=== PATIENT | female | born 1995 | race Caucasian/White ===

== ENCOUNTER 2017-09-03 06:06 | Inpatient (IN) | payer OTHER, SELFPAY ==
[2017-09-03] MEDS ORDERED: Ampicillin 2 GM in Sodium Chloride 0.9% 100 ML IV ONE (07:41)
[2017-09-03] MEDS ORDERED: Sodium Chloride 0.9% 10 ML Syringe FLUSH PRN (07:41)
[2017-09-03] MEDS ORDERED: Nalbuphine 20 MG/1 ML Amp IVPUSH PRN (07:41)
[2017-09-03] MEDS ORDERED: Ondansetron 4 MG/2 ML SDV IVPUSH PRN (07:41)
[2017-09-03] MEDS ORDERED: Lactated Ringers 1,000 ML IV SCH (07:45)
[2017-09-03] MEDS ORDERED: Oxytocin/Lactated Ringers 10 UNIT/1,000 ML BAG IV ONE (08:47)
--- NOTE | 2017-09-03 09:40 | PCM.LDHP ---
L&D History of Present Illness - General Date of Service: 09/03/17 Admit Problem/Dx: Patient Status Order with Admit Dx/Problem 09/03/17 07:42 Patient Status [ADT] Routine Admission Diagnosis/Problem Admission Diagnosis/Problem Normal 09/03/17 09:28 37-4/7 week intrauterine , active labor, advanced cervical dilation Source of Information: Patient, Old Records History Limitations: Reports: No Limitations - History of Present Illness Introduction:: Admission diagnosis: 38-4/7 week intrauterine things, active labor, advanced cervical dilation repair of history present this patient is a 22-year-old 3 para 2002 white female who is admitted into labor and delivery with contractions occurring every 3-5 minutes initially increased every 3 minutes. Her ROSLYN is 09/13/2017 placing her at 38-4/7 weeks. Her cervix is dilated to 6 cm , 95% effaced, -2 station, anterior and very soft with bulging bag cantor at time of admission. Artificial rupture murmurs undertaken resulting in clear amniotic fluid. heart tones are reassuring. VP RESPIRATORY history 3 para 2001. Her ROSLYN of 09/13/2017 is determined by a certain last menstrual period which occurred starting 12/07/2016 and lasted for 5 days. Patient had menarche at age 11, cycles every 28 days, cycles are regular and she is not using any control time conception. Previous obstetric history includes: 1. Male born 04/29/2015 at 39 weeks gestational age [facility] so was [facility]. Child's name is Lucius 2. Male born 08/11/2016 at 40 weeks gestational age after 9 hours of labor -7 lbs. 15 oz. vaginal delivery-child's name is Roel course was relatively unremarkable. Patient had a less than regular number of visits prenatally. She declined gestational diabetic testing and CBC at second trimester. She declined genetic testing and declined the T dap. The PDS score on 04/23/2017 was 0 out of 30. She is a group B strep carrier as demonstrated by her urine culture at her first visit. Her course showed a normal increase in fundal height. Her weight gain was from 145.4 pounds to 183 pounds for a 29 pound increase. laboratory testing showed blood to be a positive with a negative MRI screen. Hemoglobin first visit was 14.2 g/dL. Platelets are 280,000. Her rubella titer shows immunity. Patient declined GC and chlamydia. Her group B strep screen was not done as her urine culture showed group B strep first visit. She declined second trimester testing Allergies: none Medications: vitamins Past medical history: 1. Normal suntans vaginal delivery 2 Past surgical history: unremarkable Family history: The patient has 2 children boys ages 4 and 2-alive and well. 4 siblings 2 brothers 2 sisters, alive and well. Mother is alive and well as his father. Paternal grandmother is alive and well. Maternal grandfather last fall due to CHF at age 80. Both maternal grandmother and grandfather are alive and well. No anesthesia, bleeding, blood clotting problems noted with the family. Social history patient is , lives in [facility], is a [id number] mom. 's name is Damon Cooper. She denies any significant muscle alcohol, drugs or tobacco. Review of systems: Patient is reporting good activity. Skin: Negative cardiovascular: No chest pain or exercise intolerance Respiratory: No infectious symptoms or shortness of breath Breasts: Changes associated with only GI: Negative : Changes associated with Muscoskeletal: Negative Neurological: Negative Physical exam: Gen. patient is well-developed, well-nourished, pleasant status distress. At last visit on 08/28/2017 her blood pressure 110/78, weight is 183.4 pounds, heart rate was 144. Her prepregnancy weight was 145.4 pounds and her height is 5 feet 0 inches. Prepregnancy BMI was 28.3. In general patient well developed, well-nourished, pleasant and was stated age distress. Skin is warm dry without lesions. HEENT, neck and back within normal and still prepped lungs are clear with good breath sounds in all lung oneal. Cardiovascular exam shows regular rate and rhythm without murmurs. Breast exam is deferred abdomen done at first visit and found to be normal. Vitamin is protuberant with fundal height of 38+ years on last evaluation clinic. Cervical exam as described above Extremities and neurological exam are grossly within normal limits. - Related Data Allergies/Adverse Reactions: Allergies Allergy/AdvReac Type Severity Reaction Status Date / Time No Known Allergies Allergy Verified 04/28/14 22:54 Home Medications: Home Meds Acetaminophen [Tylenol] 650 mg PO Q4H PRN #50 tablet 04/30/14 [Rx] Ascorbate Calcium [Vitamin C] 1 tab 04/30/14 [History] Benzocaine/Menthol [Dermoplast Pain Relief [place]] 1 spray TOP ASDIRECTED PRN #1 canister 04/30/14 [Rx] Docusate Sodium [Colace] 100 mg PO BID PRN #50 cap 04/30/14 [Rx] Echinacea Purpurea Root [Echinacea] 1 tab PO 04/30/14 [History] Ibuprofen [Motrin] 200 - 800 mg PO Q6H PRN #50 tablet 04/30/14 [Rx] Lanolin [Lansinoh HPA] 1 applic TOP ASDIRECTED PRN #1 crm 04/30/14 [Rx] Vit 90/Iron Fum/Folic [ Formula] 04/30/14 [History] Past Medical History - Past Health History Medical/Surgical History: Denies Medical/Surgical History VP RESPIRATORY History: Reports: Social & Family History - Tobacco Use Smoking Status *Q: Never Smoker - Alcohol Use Days Per Week of Alcohol Use: 0 - Recreational Drug Use Recreational Drug Use: No H&P Review of Systems - Review of Systems: Review Of Systems: See Below L&D Exam - Exam Exam: See Below Problem List Initiated/Reviewed/Updated: Yes Orders Last 24hrs: Active Orders 24 hr Category Date Time Status Patient Status [ADT] Routine ADT 09/03/17 07:42 Active Activity as Tolerated [RC] PFP Care 09/03/17 07:42 Active Communication Order [RC] ASDIRECTED Care 09/03/17 07:42 Active Heart Tones [RC] ASDIRECTED Care 09/03/17 07:43 Active Notify Provider [RC] PFP Care 09/03/17 07:42 Active Notify Provider [RC] PRN Care 09/03/17 07:42 Active Peripheral IV Care [RC] . DIRECTED Care 09/03/17 07:43 Active Vital Signs [RC] PER UNIT ROUTINE Care 09/03/17 07:42 Active Regular Diet [DIET] Diet 09/03/17 Breakfast Active Ampicillin 1 gm Med 09/03/17 12:00 Active Sodium Chloride 0.9% [Normal Saline] 100 ml IV Q4H Lactated Ringers [Ringers, Lactated] 1,000 ml Med 09/03/17 07:45 Active IV ASDIRECTED Lidocaine 1% [Xylocaine 1%] Med 09/03/17 12:00 Once 10 ml INJECT ONETIME ONE Nalbuphine [Nubain] Med 09/03/17 07:41 Active 10 mg IVPUSH Q2H PRN Ondansetron [Zofran] Med 09/03/17 07:41 Active 4 mg IVPUSH Q4H PRN Sodium Chloride 0.9% [Saline Flush] Med 09/03/17 07:41 Active 10 ml FLUSH ASDIRECTED PRN Electronic Heart Tones Ext w TOCO [WOMSER] Oth 09/03/17 07:42 Ordered Routine Electronic Heart Tones Internal [WOMSER] Per Unit Oth 09/03/17 07:42 Ordered Routine Peripheral IV Insertion Adult [OM.PC] Routine Oth 09/03/17 07:42 Ordered Resuscitation Status Routine Resus Stat 09/03/17 07:41 Ordered Medication Orders Ampicillin Sodium 1 gm/ Sodium (Chloride) 100 mls @ 200 mls/hr IV Q4H ALEXA Lactated Ringer's (Ringers, Lactated) 1,000 mls @ 100 mls/hr IV ASDIRECTED ALEXA Last Admin: 09/03/17 08:00 Dose: 100 mls/hr Lidocaine HCl (Xylocaine 1%) 10 ml INJECT ONETIME ONE Stop: 09/03/17 12:01 Nalbuphine HCl (Nubain) 10 mg IVPUSH Q2H PRN PRN Reason: Pain (moderate 4-6) Ondansetron HCl (Zofran) 4 mg IVPUSH Q4H PRN PRN Reason: Nausea/Vomiting Sodium Chloride (Saline Flush) 10 ml FLUSH ASDIRECTED PRN PRN Reason: Keep Vein Open Assessment/Plan Comment:: Assessment: 1. 38-4/7 week intrauterine , active labor, advanced cervical dilation 2. Group B strep status positive per urine culture done at the beginning of needs prophylactic antibiotics 3. Patient plans to breast-feed 4. Patient is rubella immune 5. Patient wishes to do a natural labor. Plan: 1. Anticipate normal spontaneous vaginal [place] 2. Regular diet 3. Support nursing decision
--- NOTE | 2017-09-03 11:24 | PCM.SN ---
- Free Text/Narrative Note: Delivery note Maritza is a 22-year-old 3 now para 3003 white female who was admitted on the a.m. of 09/03/2017 in active labor. Patient is 38-4/7 weeks gestational age. Upon admission she was dilated to 4-5 cm. heart tones reassuring and patient was abiodun every 3-4 minutes. Artificial rupture membranes resulted in clear amniotic fluid. It should be noted that she received her first dose of antibiotics consisting of ampicillin 2 g prior to delivery. She very quickly went to complete cervical dilation and at 1006 hrs. on 09/03/2017 patient delivered a viable, delatorre, with Apgars of 9 and 10, a weight of 3720 g (8 pounds 3.2 ounces), a length of 20.5 inches in an occiput anterior position over an intact perineum. The cord was clamped 2 and was then cut by the father of the baby. He was placed on mom's abdomen, dried and stimulated. Cord blood was obtained. Placenta was then delivered in a Fay presentation over an intact perineum. The umbilical cord had 3 vessels. Placenta appeared intact and complete and was discarded per patient desire. Pitocin was administered IV after delivery of the baby resulting increase in uterine tone and reduce risk of bleeding. Blood loss was 100 mL. Patient plans to breast-feed. Condition: Good
[2017-09-03] MEDS ORDERED: Ampicillin 1 GM in Sodium Chloride 0.9% 100 ML IV SCH (12:00)
[2017-09-03] MEDS ORDERED: Lidocaine 1% 50 ML MDV INJECT ONE (12:00)
[2017-09-03] MEDS: Ibuprofen 600 MG Tab PO PRN (12:50)
[2017-09-03] MEDS ORDERED: Acetaminophen 325 MG Tab PO PRN (13:35)
[2017-09-03] MEDS ORDERED: Benzocaine/Menthol 20%-0.5% Spray 56 GM Canister TOP PRN (13:35)
[2017-09-03] MEDS ORDERED: Docusate Sodium 100 MG Cap PO PRN (13:35)
[2017-09-03] MEDS ORDERED: Lanolin 100% Cream 7 GM Tube TOP PRN (13:35)
[2017-09-03] MEDS ORDERED: Witch Hazel Medicated Pads 100/Jar TOP PRN (13:35)
[2017-09-04] MEDS: Prenatal Multivitamin with Calcium/Folic Acid/Iron Tab PO SCH (09:40)
[2017-09-04] MEDS: Ibuprofen 600 MG Tab PO PRN ×2 (09:40→19:52)
[2017-09-05 04:58] VITALS: BP 103/54
--- NOTE | 2017-09-05 07:01 | PCM.DCSUM1 ---
Discharge Summary - Hospital Course Free Text/Narrative:: Maritza is a 22-year-old 3 now para 3003 white female who was admitted on the a.m. of 09/03/2017 in active labor. Patient is 38-4/7 weeks gestational age. Upon admission she was dilated to 4-5 cm. heart tones reassuring and patient was abiodun every 3-4 minutes. Artificial rupture membranes resulted in clear amniotic fluid. It should be noted that she received her first dose of antibiotics consisting of ampicillin 2 g prior to delivery. She very quickly went to complete cervical dilation and at 1006 hrs. on 09/03/2017 patient delivered a viable, delatorre, with Apgars of 9 and 10, a weight of 3720 g (8 pounds 3.2 ounces), a length of 20.5 inches in an occiput anterior position over an intact perineum. The cord was clamped 2 and was then cut by the father of the baby. He was placed on mom's abdomen, dried and stimulated. Cord blood was obtained. Placenta was then delivered in a Fay presentation over an intact perineum. The umbilical cord had 3 vessels. Placenta appeared intact and complete and was discarded per patient desire. Pitocin was administered IV after delivery of the baby resulting increase in uterine tone and reduce risk of bleeding. Blood loss was 100 mL. Patient plans to breast-feed. patient. She is nursing without problems, ambulating well and has minimal lochia. Vital signs stable. Post CBC is within normal limits for the period. - Discharge Data Discharge Date: 09/05/17 Discharge Disposition: Home, Self-Care 01 Condition: Good - Patient Instructions Diet: Regular Diet as Tolerated (Nursing diet was increased calories and calcium as directed) Activity: As Tolerated (No intercourse or tampons until bleeding resolves.) Driving: May Drive Today Showering/Bathing: May Shower (May take a bath) Notify Provider of: Fever, Increased Pain, Swelling and Redness, Nausea and/or Vomiting - Discharge Plan Home Medications: Home Meds Acetaminophen [Tylenol] 650 mg PO Q4H PRN #50 tablet 04/30/14 [Rx] Ascorbate Calcium [Vitamin C] 1 tab 04/30/14 [History] Benzocaine/Menthol [Dermoplast Pain Relief [place]] 1 spray TOP ASDIRECTED PRN #1 canister 04/30/14 [Rx] Docusate Sodium [Colace] 100 mg PO BID PRN #50 cap 04/30/14 [Rx] Echinacea Purpurea Root [Echinacea] 1 tab PO 04/30/14 [History] Ibuprofen [Motrin] 200 - 800 mg PO Q6H PRN #50 tablet 04/30/14 [Rx] Lanolin [Lansinoh HPA] 1 applic TOP ASDIRECTED PRN #1 crm 04/30/14 [Rx] Vit 90/Iron Fum/Folic [ Formula] 04/30/14 [History] Acetaminophen [Tylenol] 650 mg PO Q4H PRN tablet 09/05/17 [Rx] Referrals: Eddie Steen MD [Primary Care Provider] - (Return to clinicDr. Steen2 weeks.) - Discharge Summary/Plan Comment DC Time >30 min.: No Discharge Summary/Plan Comment: Discharge instructions: 1. Discharge home 2. Diet, activity and follow-up discussed with patient. Recommend nursing diet with increased calories and calcium. 3. Precautions given concern increased pain, bleeding, temperature, signs/ symptoms of DVT/PE. 4. Medications per home medication was printed, discussed with and given to the patient. 5. Return to clinic-Dr. [facility]en[facility] in 2 weeks. Diagnosis: Term -delivered Condition: Good - Patient Data Vitals - Most Recent: Last Vital Signs Temp 36.6 C 09/05/17 03:19 Pulse 69 09/05/17 03:19 Resp 16 09/04/17 19:55 BP 103/54 L 09/05/17 03:19 Pulse Ox 100 09/05/17 03:19 Weight - Most Recent: 83.007 kg I&O - Last 24 hours: Intake & Output 09/04/17 09/04/17 09/05/17 14:59 22:59 06:59 Intake Total 120 Balance 120 Lab Results - Last 24 hrs: Laboratory Results - last 24 hr 09/04/17 Range/Units 11:40 WBC 10.65 H (3.98-10.04) K/mm3 RBC 4.36 (3.98-5.22) M/mm3 Hgb 11.6 (11.2-15.7) gm/L Hct 36.1 (34.1-44.9) % MCV 82.8 (79.4-94.8) fl MCH 26.6 (25.6-32.2) pg MCHC 32.1 L (32.2-35.5) g/dl RDW Std Deviation 46.3 (36.4-46.3) fL Plt Count 198 (182-369) K/mm3 MPV 11.6 (9.4-12.3) fl Med Orders - Current: Current Medications Acetaminophen (Tylenol) 650 mg PO Q4H PRN PRN Reason: mild pain or fever Benzocaine/Menthol (Dermoplast Pain Relief [place]) 0 gm TOP ASDIRECTED PRN PRN Reason: Perineal Comfort Measure Docusate Sodium (Colace) 100 mg PO BID PRN PRN Reason: Constipation Emollient Ointment (Lansinoh Hpa) 0 gm TOP ASDIRECTED PRN PRN Reason: Sore Nipples Oxytocin 10 unit/ Lactated (Ringer's) 1,001 mls @ 500 mls/hr IV ASDIRECTED [facility] Ibuprofen (Motrin) 600 mg PO Q4H PRN PRN Reason: Mild pain or fever Last Admin: 09/04/17 19:52 Dose: 600 mg Prenat Multivit/[place]/Iron/Folic Ac ( Plus Iron) 1 each PO DAILY [facility] Last Admin: 09/04/17 09:40 Dose: Not Given Enid Gallagher ([place]) 1 pad TOP ASDIRECTED PRN PRN Reason: Hemorrhoid pain Discontinued Medications Ampicillin Sodium 2 gm/ Sodium (Chloride) 100 mls @ 200 mls/hr IV ONETIME ONE Stop: 09/03/17 08:10 Last Admin: 09/03/17 07:50 Dose: 200 mls/hr Ampicillin Sodium 1 gm/ Sodium (Chloride) 100 mls @ 200 mls/hr IV Q4H [facility] Lactated Ringer's (Ringers, Lactated) 1,000 mls @ 100 mls/hr IV ASDIRECTED [facility] Last Admin: 09/03/17 08:00 Dose: 100 mls/hr Oxytocin/Lactated Ringer's (Pitocin In Lr 10 Units/1,000 Ml) Confirm Administered Dose 10 unit in 1,000 mls @ as directed IV .STK-MED ONE Stop: 09/03/17 08:48 Last Admin: 09/03/17 10:10 Dose: 10 unit Lidocaine HCl (Xylocaine 1%) 10 ml INJECT ONETIME ONE Stop: 09/03/17 12:01 Nalbuphine HCl (Nubain) 10 mg IVPUSH Q2H PRN PRN Reason: Pain (moderate 4-6) Ondansetron HCl (Zofran) 4 mg IVPUSH Q4H PRN PRN Reason: Nausea/Vomiting Sodium Chloride (Saline Flush) 10 ml FLUSH ASDIRECTED PRN PRN Reason: Keep Vein Open *Q Meaningful Use (DIS) - VTE *Q VTE Criteria *Q: - Stroke *Q Stroke Criteria *Q: - AMI *Q AMI Criteria *Q:
[2017-09-05] MEDS: Prenatal Multivitamin with Calcium/Folic Acid/Iron Tab PO SCH (08:30)
[2017-09-05] MEDS: Ibuprofen 600 MG Tab PO PRN (08:31)
== END 2017-09-05 10:35 | disposition home or self-care (01) | DRG 775 ==
LOC: JD.OB 06:06 → JD.OBCHECK 06:06 → JD.OB 07:42 → JD.OBCHECK 07:42 → JD.OB 10:06 → OBSVTOIN 10:06
PROVIDERS: ADMIT Obstetrics & Gynecology; ATTEND Obstetrics & Gynecology
PROC: 10E0XZZ Delivery of Products of Conception, External Approach (ICD-10-PCS; principal; 2017-09-03)
PROC: 10907ZC Drainage of Amniotic Fluid, Therapeutic from Products of Conception, Via Natural or Artificial Opening (ICD-10-PCS; 2017-09-03)
DX: O99.824 Streptococcus B carrier state complicating childbirth (principal); Z3A.38 38 weeks gestation of pregnancy; Z37.0 Single live birth
CPT/HCPCS: 36415; 59409; 85027; A9270-GY; J0290; J2590; J7030; J7120

== ENCOUNTER 2019-06-15 04:42 | Inpatient (IN) | payer SELFPAY ==
[2019-06-15] MEDS ORDERED: Nalbuphine 10 MG/ML Syringe IVPUSH PRN (05:03)
[2019-06-15] MEDS ORDERED: Sodium Chloride 0.9% 10 ML Syringe FLUSH PRN (05:03)
[2019-06-15] MEDS ORDERED: Lactated Ringers 1,000 ML IV SCH (05:15)
[2019-06-15] MEDS ORDERED: Oxytocin/Lactated Ringers 10 UNIT/1,000 ML BAG IV SCH (05:15)
--- NOTE | 2019-06-15 05:18 | PCM.LDHP ---
L&D History of Present Illness - General Date of Service: 06/15/19 Admit Problem/Dx: Admission Diagnosis/Problem Admission Diagnosis/Problem 06/15/19 05:04 Maritza is a 23-year-old 4 para 3003 white female at 39-2/7 weeks gestational age with a final ROSLYN of 06/20/2019 is admitted to labor and delivery in active labor with advanced cervical dilation of 8 cm, 90% effaced, -1 station , anterior cervix, very soft consistency, bag cantor intact in vertex presentation. Source of Information: Patient History Limitations: Reports: No Limitations - History of Present Illness Introduction:: Maritza is a 23-year-old 4 para 3003 white female at 39-2/7 weeks gestational age with a final ROSLYN of 06/20/2019 is admitted to labor and delivery on the supervisor paper coating of 06/15/2019 in active labor with advanced cervical dilation of 8 cm, 90% effaced, -1 station, anterior cervix, very soft consistency, bag cantor intact in vertex presentation. She reports good activity.She had been scheduled for induction on 06/15/2019. heart tones are reassuring. B strep screen is negative. HOT BALLER history: Maritza is a 23-year-old 4 para 3003. Final ROSLYN 06/20/2019 as determined by a certain last menstrual start at 09/13/2018. Patient was not using any control at the time of conception. She had menarche at age 11. Cycles every 28-30 days and regular. Her previous obstetric history includes the followin. Male born 04/29/2015 at 39 weeks gestational age after 46 hours of labor. 8 lbs. 2 oz. born via normal sinus vaginal delivery at [facility]. In a home but failed to progress was admitted to [facility] for delivery. Child's name is Lucius. 2. Male born 08/11/2017 at 40 weeks gestational age after 9 hours of labor. Baby weighed 7 lbs. 15 oz. and was born via normal spontaneous vaginal delivery. She delivered at [facility]. Child's name is Roel. 3. Male infant born 09/03/2017 after 9 hours of labor. Weight was 8 lbs. 3 oz. Baby delivered via spontaneous vaginal delivery. She delivered at [facility] in [place]. Child's name is John. course: Patient was seen early in the at approximately 4 weeks and 5 days. She was seen on a regular basis. Her weight gain was from 170.4 pounds to 195.4 pounds for a 15 pound weight gain. Her vital signs remained stable throughout the course and her fundal height growth was appropriate. She declined genetic testing. She declined STI testing. She declined T dap and flu vaccination. Her [place] depression screening score was 0/30 on 02/05/2019. She plans to breast-feed. She refused her 1 hour glucose tolerance test. labs: Blood is A+ with a negative MRI screening. First hemoglobin was 13.6 g/dL and platelets are 281,000. She is rubella immune. Urine culture was negative. She declined hepatitis and HIV tests. Chlamydia and gonorrhea assays were also declined. Her group B strep screen was negative. Second trimester testing was declined. These: None Medications: 1. B complex oral tablets 1 daily 2. tablets one daily Past medical history: 1. Normal spontaneous vaginal delivery 2 Past surgical history: Unremarkable Family history: Patient has 2 children 2 boys ages 3 and 1. They are alive and well. 4 siblings including 2 brothers and 2 sisters are alive and well. Mother is alive and well as is her father. Maternal grandmother is alive and well. Maternal grandfather approximately 9 months ago due to CHF at age 80. Paternal grandmother and paternal grandfather both alive and well. There is no known family history of cancer, bleeding or clotting disorders, anesthesia- related issues or -related issues. Social history: Patient is . She lives in [place], [place]. She is a homemaker. She is a high school graduate. 's name is Damon Cooper. She does not use any alcohol, drugs or tobacco. Review of systems: In general patient has no complaints other than contractions.. Skin: Negative Lungs: No infectious symptoms or shortness of breath Cardiovascular: No chest pain or exercise intolerance Breasts: changes noted. GI: Negative : Body habitus changes associated with . Musculoskeletal: Negative Neurological: Negative In general the patient is well-developed, well-nourished, pleasant female of stated age in no acute distress. She is having contractions but seems to tolerate them very well. On last evaluation in clinic her blood pressure was 112/68. Weight was 195.4 with a pregravid weight 170.4. Height is 5 feet 3 inches. The heart rate at that time was 145 bpm. body mass index is 30.1. Skin is warm dry without lesions. HEENT, neck and back within normal limits. Lungs are clear with good breath sounds in all lung oneal. Cardiovascular exam shows regular and rhythm without murmurs. Breast exam is deferred at this time having been done at her first female was found to be normal and is not repeated at this time. Breast. Abdomen is Gravid with fundal height of 38.5 cms on last evaluation. Genital per digital evaluation shows cervix to be 8 cm dilated, 95% effaced, -1 station, bulging bag cantor, anterior position, very soft, vertex presentation.. Extremities and neurological exam are grossly within normal limits. - Related Data Allergies/Adverse Reactions: Allergies Allergy/AdvReac Type Severity Reaction Status Date / Time No Known Allergies Allergy Verified 04/28/14 22:54 Home Medications: Home Meds Acetaminophen [Tylenol] 650 mg PO Q4H PRN #50 tablet 04/30/14 [Rx] Ascorbate Calcium [Vitamin C] 1 tab 04/30/14 [History] Benzocaine/Menthol [Dermoplast Pain Relief [place]] 1 spray TOP ASDIRECTED PRN #1 canister 04/30/14 [Rx] Docusate Sodium [Colace] 100 mg PO BID PRN #50 cap 04/30/14 [Rx] Echinacea Purpurea Root [Echinacea] 1 tab PO 04/30/14 [History] Ibuprofen [Motrin] 200 - 800 mg PO Q6H PRN #50 tablet 04/30/14 [Rx] Lanolin [Lansinoh HPA] 1 applic TOP ASDIRECTED PRN #1 crm 04/30/14 [Rx] Vit 90/Iron Fum/Folic [ Formula] 04/30/14 [History] Acetaminophen [Tylenol] 650 mg PO Q4H PRN tablet 09/05/17 [Rx] Past Medical History - Past Health History Medical/Surgical History: Denies Medical/Surgical History HOT BALLER History: Reports: Social & Family History - Family History Family Medical History: Noncontributory H&P Review of Systems - Review of Systems: Review Of Systems: See Below L&D Exam - Exam Exam: See Below - Vital Signs Weight: 87.997 kg Problem List Initiated/Reviewed/Updated: Yes Assessment/Plan Comment:: 1. Benign to seventh week intrauterine , active labor, advanced cervical dilation of 8 cm. 2. Reassuring heart tones. 3. Group B strep screen is negative. 4. Patient plans to breast-feed 5. Patient has declined T dap, influenza vaccination, STI testing 6. Patient desires natural labor Plan: 1. Interesting normal spontaneous vaginal delivery 2. Routine labor care 3. RPR and CBC upon admission if patient brown 4. Support breast-feeding decision/activity
[2019-06-15] MEDS ORDERED: Methylergonovine 0.2 MG/1 ML Amp ONE (06:55)
--- NOTE | 2019-06-15 07:15 | PCM.SN ---
- Free Text/Narrative Note: Delivery note: Maritza is a 23-year-old 4 now para 4004 white female at 39-2/7 weeks gestational age with a final ROSLYN of 06/20/2019 is admitted to labor and delivery on the referral and information aide of 06/15/2019 in active labor with advanced cervical dilation of 8 cm, 90% effaced, -1 station, anterior cervix, very soft consistency, bag of cantor intact in vertex presentation. She reports good activity. She had been scheduled for induction on 06/15/2019. heart tones are reassuring. B strep screen is negative. She went on to quickly progressed to complete cervical dilation. With pushing bag was ruptured resulting in clear amniotic fluid. She pushed with approximately 3 contractions and delivered a viable, 3760 g (8 lbs. 5 oz.) female infant with Apgars of 8 and 9 and a length of 19.0 inches in a direct occiput anterior position over an intact perineum. He was born at 0620 hrs. was placed on mom's abdomen. Nose and mouth were bulb suctioned. The cord was allowed to pulsate for approximately 2 minutes after which it was clamped 2 and cut by the baby's father Damon. Cord blood was obtained. The umbilical cord had 3 vessels. Pitocin was started immediately after delivery the baby to facilitate increase in uterine tone and decreased likelihood of bleeding. The placenta delivered at approximately 0623 hrs. It delivered in a Fay presentation, appeared intact and complete and was discarded per patient desire. Estimated blood loss was approximately 300 mL. Patient was given a dose of Methergine 0.2 mg IM to further facilitate increase in uterine tone and decreased likelihood of bleeding. Condition: Good. Patient does plan to breast- feed.
[2019-06-15] MEDS ORDERED: Docusate Sodium 100 MG Cap PO PRN (07:26)
[2019-06-15] MEDS ORDERED: Benzocaine/Menthol 20%-0.5% Spray 56 GM Canister TOP PRN (07:26)
[2019-06-15] MEDS ORDERED: Acetaminophen 325 MG Tab PO PRN (07:26)
[2019-06-15] MEDS ORDERED: Witch Hazel Medicated Pads 40/Jar TOP PRN (07:26)
[2019-06-15] MEDS: Ibuprofen 600 MG Tab PO PRN (07:49)
[2019-06-16] MEDS: Ibuprofen 600 MG Tab PO PRN (01:52)
--- NOTE | 2019-06-16 13:28 | PCM.DCSUM1 ---
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 She reports good activity. She had been scheduled for induction on 06/15/2019. heart tones are reassuring. B strep screen is negative. She went on to quickly progressed to complete cervical dilation. With pushing bag was ruptured resulting in clear amniotic fluid. She pushed with approximately 3 contractions and delivered a viable, 3760 g (8 lbs. 5 oz.) female with Apgars of 8 and 9 and a length of 19.0 inches in a direct occiput anterior position over an intact perineum. He was born at 0620 hrs. was placed on mom's abdomen. Nose and mouth were bulb suctioned. The cord was allowed to pulsate for approximately 2 minutes after which it was clamped 2 and cut by the baby's father Damon. Cord blood was obtained. The umbilical cord had 3 vessels. Pitocin was started immediately after delivery the baby to facilitate increase in uterine tone and decreased likelihood of bleeding. The placenta delivered at approximately 0623 hrs. It delivered in a Fay presentation, appeared intact and complete and was discarded per patient desire. Estimated blood loss was approximately 300 mL. Patient was given a dose of Methergine 0.2 mg IM to further facilitate increase in uterine tone and decreased likelihood of bleeding. patient is done well. She is voiding well, has minimal lochia, is desiring discharge home. Condition: Good. Patient does plan to breast-feed. Diagnosis: Stroke: No - Discharge Data Discharge Date: 06/16/19 Discharge Disposition: Home, Self-Care 01 Condition: Good - Referral to Home Health Primary Care Physician: Eddie Steen MD - Patient Instructions Diet: Regular Diet as Tolerated (Nursing diet with increase calories and calcium as recommended) Activity: As Tolerated (No intercourse or tampons until bleeding resolves) Driving: May Drive Today Showering/Bathing: May Shower (May take a bath) Notify Provider of: Fever, Increased Pain, Swelling and Redness, Nausea and/or Vomiting - Discharge Plan Home Medications: Home Meds Vit 90/Iron Fum/Folic [ Formula] 04/30/14 [History] Acetaminophen [Tylenol] 650 mg PO Q4H PRN tablet 06/16/19 [Rx] Ibuprofen [Motrin] 600 mg PO Q4H PRN tablet 06/16/19 [Rx] Referrals: Eddie Steen MD [Primary Care Provider] - [facility] - Discharge Summary/Plan Comment DC Time >30 min.: No Discharge Summary/Plan Comment: Discharge instructions: 1. Discharge home 2. Diet, activity and follow-up discussed with patient. Recommend nursing diet with increased calories and calcium. 3. Precautions given concern increased pain, bleeding, temperature, signs/ symptoms of DVT/PE. 4. Medications per home medication was printed, discussed with and given to the patient. 5. Return to clinic-Dr. Steen[facility] [place] in 2-4weeks. Diagnosis: Term -delivered Condition: Good - Patient Data Vitals - Most Recent: Last Vital Signs Temp 36.6 C 06/15/19 15:05 Pulse 60 06/16/19 05:11 Resp 16 06/16/19 05:11 BP 107/66 06/16/19 05:11 Pulse Ox 98 06/16/19 05:11 Weight - Most Recent: 87.997 kg I&O - Last 24 hours: Intake & Output 06/15/19 06/16/19 06/16/19 22:59 06:59 14:59 Intake Total 0 Balance 0 Med Orders - Current: Current Medications Acetaminophen (Tylenol) 650 mg PO Q4H PRN PRN Reason: mild pain or fever Benzocaine/Menthol (Dermoplast Pain Relief [place]) 0 gm TOP ASDIRECTED PRN PRN Reason: Perineal Comfort Measure Last Admin: 06/15/19 07:50 Dose: 1 spray Docusate Sodium (Colace) 100 mg PO BID PRN PRN Reason: Constipation Last Admin: 06/15/19 07:49 Dose: 100 mg Ibuprofen (Motrin) 600 mg PO Q4H PRN PRN Reason: Mild pain or fever Last Admin: 06/16/19 01:52 Dose: 600 mg Witch Aileen (Tucks) 1 pad TOP ASDIRECTED PRN PRN Reason: Pain Last Admin: 06/15/19 07:50 Dose: 1 pad Discontinued Medications Lactated Ringer's (Ringers, Lactated) 1,000 mls @ 100 mls/hr IV ASDIRECTED ALEXA Oxytocin/Lactated Ringer's (Pitocin In Lr 10 Units/1,000 Ml) 10 unit in 1,000 mls @ 500 mls/hr IV CONTINUOUS ALEXA Last Admin: 06/15/19 06:20 Dose: 500 mls/hr Methylergonovine Maleate (Methergine) Confirm Administered Dose 0.2 mg .ROUTE .STK-MED ONE Stop: 06/15/19 06:56 Last Admin: 06/15/19 07:23 Dose: 0.2 mg Nalbuphine HCl (Nubain) 10 mg IVPUSH Q2H PRN PRN Reason: Pain Sodium Chloride (Saline Flush) 10 ml FLUSH ASDIRECTED PRN PRN Reason: Keep Vein Open
[2019-06-16 13:58] VITALS: BP 124/72; PULSE 86
== END 2019-06-16 13:54 | disposition home or self-care (01) | DRG 807 ==
LOC: JD.OBCHECK 04:42 → UNDOADMOB 05:38 → JD.OB 05:38 → OBSVTOIN 06:20 → JD.MS 21:56
PROVIDERS: ADMIT Obstetrics & Gynecology; ATTEND Obstetrics & Gynecology
PROC: 10E0XZZ Delivery of Products of Conception, External Approach (ICD-10-PCS; principal; 2019-06-15)
DX: O80 Encounter for full-term uncomplicated delivery (principal); Z37.0 Single live birth; Z3A.39 39 weeks gestation of pregnancy; Z79.899 Other long term (current) drug therapy
CPT/HCPCS: 36415; 59025; 59409; 85025; A9270-GY; J2210; J2590